=== PATIENT | male | born 1970 | race Caucasian/White ===

== ENCOUNTER 2020-06-29 17:29 | Emergency (ER) | payer OTHER, SELFPAY ==
--- NOTE | 2020-06-29 17:35 | ED.URI ---
HPI - URI/Sore Throat General Chief Complaint: Upper Respiratory Infection Stated Complaint: TIRED/BODY ACHES Time Seen by Provider: 06/29/20 17:44 Source: patient and RN notes reviewed Mode of arrival: ambulatory Limitations: no limitations History of Present Illness HPI Narrative: 49-year-old male with history of diabetes presents with concern for fatigue and body aches, low-grade fever. Reports symptoms started on Saturday. He reports occasional coughing fits. He reports using cough medicine [id number] with some relief. Reports has been using Tylenol ibuprofen. Reports symptoms are beginning to feel better. Reports he went to work on Saturday, despite having a fever. MD elicited complaint: other (Body aches) Related Data Home Medications Medication Instructions Recorded Confirmed canagliflozin [Invokana] mg 06/29/20 dulaglutide [Trulicity] mg SUBCUT 06/29/20 losartan 06/29/20 metformin mg 06/29/20 propranolol PO 06/29/20 Allergies Allergy/AdvReac Type Severity Reaction Status Date / Time No Known Allergies Allergy Unverified 12/14/11 22:19 Review of Systems Review of Systems: Narrative: CONSTITUTIONAL: Reports malaise, chills, sweats, fatigue, low-grade fever. EYES: Denies visual changes, redness, or discharge. ENT: Denies rhinorrhea, congestion, sinus pain, otalgia and sore throat. CARDIOVASCULAR: Denies chest pain, palpitations, or edema. RESPIRATORY: Reports cough. Denies dyspnea. GASTROINTESTINAL: Denies abdominal pain, nausea, vomiting, diarrhea SKIN: Denies rash or itching. MUSCULOSKELETAL: Denies myalgia. NEUROLOGIC: Denies headache. All systems reviewed & are unremarkable except as noted in HPI and below PMFSH Comments At time of signature, agree with nursing past medical, surgical, social and family history. There is no relevant family history pertinent to the presenting complaint Exam Narrative: Exam Narrative: GENERAL: Well-appearing, well-nourished, and in no acute distress. HEAD: Normocephalic EYES: PERRLA, conjunctivae clear ENT: Nares clear, turbinates erythematous, clear discharge. Mucous membranes moist. TM pearly josé with dull light reflex bilaterally; no tragal tenderness. Oropharynx not erythematous without lesions. Tonsils not enlarged and without exudate, no drooling, no hoarseness, no trismus, uvula midline. NECK: Supple. No lymphadenopathy CHEST: Clear to auscultation, breath sounds equal. No wheezing, rhonchi, rales, or stridor. No respiratory distress, speaks in full sentences. HEART: Regular rate and rhythm. No murmur heard. SKIN: Warm, dry, no rash. NEURO: Alert and oriented x3. PSYCH: Normal mood and affect Course Course Emergency Course: Patient is aware of diagnosis, understands and agrees to treatment plan. Anticipatory guidance given. Patient agrees to follow-up as directed and is aware of reasons to seek care at the emergency department. Portions of this record may have been created with voice recognition software Vital Signs Vital signs: Vital Signs Temperature 98.4 F 06/29/20 17:38 Pulse Rate 65 06/29/20 17:38 Respiratory Rate 16 06/29/20 17:38 Blood Pressure 149/88 H 06/29/20 17:38 Pulse Oximetry 100 06/29/20 17:38 Temperature 98.4 F 06/29/20 17:38 Pulse Rate 65 06/29/20 17:38 Respiratory Rate 16 06/29/20 17:38 Blood Pressure 149/88 H 06/29/20 17:38 Pulse Oximetry 100 06/29/20 17:38 Reviewed. Patient has history of hypertension MDM - URI/Sore Throat MDM Narrative Medical decision making narrative: Differential diagnosis considered: Beckham virus, strep pharyngitis, allergic rhinitis, upper respiratory tract infection, sinusitis, rhinosinusitis, nasopharyngitis. viral pharyngitis, otitis media, otitis externa, pneumonia, bronchitis, viral cough syndrome, viral syndrome, and influenza. Exam findings show no acute concerns or changes; patient is non-toxic appearing and is in no distress. Patient is appropriate for outpatien
[2020-06-29 17:38] VITALS: BP 149/88; PULSE 65; RESP 16; TEMP 36.9; O2SAT 100
== END 2020-06-29 18:06 | disposition home or self-care (01) ==
PROVIDERS: Emergency Provider Nurse Practitioner; PCP Internal Medicine Endocrinology, Diabetes & Metabolism
DX: B34.9 Viral infection, unspecified (principal); Z20.828 Contact with and (suspected) exposure to other viral communicable diseases; I10 Essential (primary) hypertension; E11.9 Type 2 diabetes mellitus without complications
CPT/HCPCS: 87804; 99203; G0463

== ENCOUNTER 2020-06-30 06:53 | Outpatient (NON) | payer OTHER, SELFPAY ==
[2020-06-30 17:44] LABS: SARS-CoV-2 RNA PCR Positive
== END 2020-06-30 06:54 ==
LOC: ANHCOVIDDT 06:57
PROVIDERS: PCP Internal Medicine Endocrinology, Diabetes & Metabolism; Visit Provider Nurse Practitioner
DX: U07.1 COVID-19 (principal)
CPT/HCPCS: 87635; C9803; U0003

== ENCOUNTER 2022-02-07 16:30 | Outpatient (RCR) | payer OTHER, SELFPAY ==
[2021-11-17 09:12] VITALS: PULSE 70
[2022-01-22 17:40] LABS: Glucose Point of Care 105 mg/dl (65-105)
== END 2022-02-07 17:45 | disposition home or self-care (01) ==
LOC: ANHCPREHAB 16:30
PROVIDERS: PCP Internal Medicine Endocrinology, Diabetes & Metabolism; Visit Provider Internal Medicine Interventional Cardiology
DX: Z95.5 Presence of coronary angioplasty implant and graft (principal)
CPT/HCPCS: 93798